=== PATIENT | female | born 1965 | race Caucasian/White ===

== ENCOUNTER → 2017-10-27 15:51 | Outpatient (CLI) | payer OTHER, SELFPAY | PROVIDERS: Visit Provider Otolaryngology Otolaryngology/Facial Plastic Surgery | DX: J34.89 Other specified disorders of nose and nasal sinuses (principal) | CPT/HCPCS: 87070; 87077; 87186; 87205 ==

== ENCOUNTER → 2020-02-26 12:34 | Outpatient (CLI) | payer OTHER, SELFPAY ==
[2013-12-31 20:43] VITALS: BMI 38.4
--- NOTE | 2020-02-26 12:56 | CT_ITS ---
STUDY: CT SCAN LOWER EXTREMITY LEFT REASON FOR EXAM: Female, 55 years old. [facility] PROTOCOL RADIATION DOSAGE (If Supplied By Facility): CTDIvol = ( 18.76 ) mGy, DLP = ( 1216.75 ) mGycm. Individualized dose optimization techniques were used for this CT.? TECHNIQUE: Multiple axial tomographic images of the left hip and left knee joints were obtained. Sagittal and coronal reconstruction was obtained as well. COMPARISON: None. FINDINGS: Degenerative changes and sclerosis of the symphysis pubis. The hip joint is unremarkable. The joint space is well maintained. There is a marked degree of the joint space narrowing involving the medial compartment of the knee joint with evidence of degenerative spur formation. There is evidence of chondrocalcinosis of the lateral meniscus. A screw fixation device is seen along the lateral metaphysis of the distal femur. Mild degree of joint space narrowing involving the patellofemoral joint. There is a 7.2 mm cyst in the subchondral region of the intercondylar eminence of the proximal tibia. CT/Extremity Lower without Contra IMPRESSION: Marked degree of joint space narrowing involving the medial compartment of the knee joint with degenerative spur formation. Chondrocalcinosis of the lateral meniscus. Mild degree of the joint space narrowing of the patellofemoral joint. Prior screw placement along the lateral aspect of the distal femoral metaphysis. Electronically Signed: Louie Hager, at 15:03 EDT , Service support ,
== END ==
PROVIDERS: PCP Family Medicine; Referring Provider Physician Assistant Surgical; Visit Provider Physician Assistant Surgical
DX: M21.162 Varus deformity, not elsewhere classified, left knee (principal)
CPT/HCPCS: 36415; 73700; 80048; 85025; 87081; 93005

== ENCOUNTER 2020-03-20 05:24 | Day surgery (SDC) | payer OTHER, SELFPAY ==
[2013-12-31 20:43] VITALS: BMI 38.4
--- NOTE | 2020-02-26 12:58 | EKG12_ITS ---
Test Reason : PRE-OP Blood Pressure : / mmHG Vent. Rate : 086 BPM Atrial Rate : 086 BPM P-R Int : 170 ms QRS Dur : 082 ms QT Int : 364 ms P-R-T Axes : 048 013 042 degrees QTc Int : 435 ms Normal sinus rhythm Low Vatage QRS Confirmed by KATELIN GARY, CLAYTON ([id number]), metropolitan editor NICOLA CHAO ([id number]) on 02/28/2020 11:03:21 AM Referred By: Dany Miller Confirmed By:CLAYTON THOMASON MD
[2020-02-26 13:55] LABS: Absolute Lymphocyte Count 2.06 X10^3/uL (0.83-4.51); Absolute Neutrophil Count 5.5 X10^3/uL (2.0-7.7); Basophil# 0.04 X10^3/uL; Basophil% 0.5 % (0-1); Eosinophil# 0.29 X10^3/uL; Eosinophils% 3.5 % (0-5); Hematocrit 40.8 % (37-47); Hemoglobin 13.5 g/dL (12.0-15.0); Lymphocyte # 2.06 X10^3/ul (4.0); Lymphocyte % 24.7 % (19-41); Mean Corp Hgb Conc 33.1 g/dL (32-36); Mean Corpuscular Hgb 28.6 pg (27.0-32.0); Mean Corpuscular Volume 86.4 fL (81-99); Mean Platelet Vol. 10.6 fl (6.2-12.0); Monocyte# 0.37 X10^3/uL; Monocyte% 4.4 % (0-10); NRBC Flagged by Analyzer 0 % (0-5); Neutrophil # 5.54 X10^3/uL (2.7-7.7); Neutrophil % 66.5 % (47-70); Platelet Count 288 K/mm3 (150-450); RBC Distribution Width CV 11.9 % (11.6-14.6); RBC Distribution Width SD 37.1 fl (35.1-43.9); Red Blood Count 4.72 M/mm3 (4.2-5.4); White Blood Count 8.3 K/mm3 (4.4-11.0)
[2020-02-26 14:23] LABS: Anion Gap 5 (5-15); BUN 19 mg/dL (7-18); BUN/Creat Ratio 20.4 RATIO (10-20); Calcium,Total 9.4 mg/dL (8.5-10.1); Chloride 104 mmol/L (98-107); Creatinine, Serum 0.93 mg/dL (0.55-1.02); EST Glomerular Filtration Rate 67 mL/min (>60); Est Glom Filt Rate - Afr Amer 81 mL/min (>60); Glucose 98 mg/dL (74-106); Potassium 3.7 mmol/L (3.5-5.1); Sodium Level 141 mmol/L (136-145)
--- NOTE | 2020-02-28 15:30 | PCM.HP.BLA ---
History and Physical History and Physical [facility] Patient Name: Danielle Mcmillan : 1965 From: TAMIKO MEJIA PA-C DATE OF SURGERY: 03/20/2020 SCHEDULED PROCEDURE: left total knee arthroplasty HISTORY OF PRESENT ILLNESS: Preoperative history and physical exam was performed on February 26, 2020. This is a 55-year-old female who has had ongoing pain for several years. Patient has seen a previous orthopedic surgeon who did recommend a left total knee arthroplasty. Patient wanted to stay closer to home and would like Dr. Dany Miller to proceed with the total knee replacement. Patient has previous surgeries of the left and right knee. Patient had a previous right knee arthroscopy for meniscectomy in 2013 by an outside orthopedic surgeon. She has also had left knee arthroscopy in 2009. She has had previous ACL reconstruction on the left knee in 1983 and 1980. She has been treated over the past 10 years with Euflexxa injections every 6 months. She was given these by Dr. Buster Angel. Her last Euflexxa injection on December 15, 2019 in bilateral knees. The last 2 series of injections have not provided relief as before. She has had a recent injury walking down a hill with her left knee locking up and she had to shift her weight to the right knee. Her right knee buckled. Her left knee is much worse than the right knee. Her pain can reach 7/10 with activities. Patient has fallen and tripped/stump due to her knee pain. Patient currently denies any recent fevers, chills, recent infections. There is been no chest pain or shortness of breath. She has medical history pertinent for acid reflux. We are obtaining surgical clearance from the primary care physician Dr. Rivers. After failing conservative measures and discussing treatment options with Dr. Dany Miller, the patient does wish to proceed with a left total knee arthroplasty. REVIEW OF SYSTEMS: ROS: Const: Denies anorexia, anxiety, change in appetite, fever and weight change,hard of hearing, and vision problems. CV: Denies chest pain, heart murmur, irregular heartbeat and peripheral vascular disease. Resp: Reports sleep apnea, but denies asthma, cough, pneumonia, shortness of breath, tuberculosis and wheezing. GI: Reports heartburn, but denies constipation, diarrhea, nausea, bloody stools and vomiting, and difficulty swallowing. : Denies incontinence. Musculo: Denies leg swelling, trouble walking and weakness and limp. Skin: Reports tattoo, but denies Raynaud's and history of shingles. Neuro: Reports numbness/tingling but denies ambulatory dysfunction, dizziness and tremor. Psych: Reports stress, but denies anxiety, depression, insomnia and mental illness. Finesse/Lymph: Reports bleeding/bruising tendency, but denies anemia and past transfusion. Reviewed, no changes. PAST MEDICAL HISTORY: Advance Care Plan: No Advance Directives Effective Date: 02/16/2020 PMH: Medical Problems: Acid Reflux, Kidney Stones Accidents: None Surgical Hx: ACL Total Reconstruction Left - 1983 1990 BLT Breast Reduction - 1996 Knee Arthroscopy LT - (2009) Knee Arthroscopy RT - (2013) Carpal Tunnel Release LT - (2010) Carpal Tunnel Release RT - (2010) Anesthesia Complications: Vomiting Assistive Devices: Brace, Glasses Reviewed and updated. SOCIAL HISTORY: SH: Marital: Single.Occupation: [employer] Status: Currently Working.Hand Dominance: Right-handed. Personal Habits: Cigarette Use: Former.Smokeless Tobacco: Never Used Smokeless Tobacco.E-Cigarette Use: Never used.Alcohol: Occasionally.Drug Use: Denies Use.Enjoy Exercising: Never Exercises. Reviewed and updated. VITALS: Ht: 62 Wt: 214lb Wt k.070 BMI: 39.1 BP: 130/90 Pulse: 79 Resp: 16 T: 95.8 T: 35.4C ALLERGIES: Azithromycin Amoxicillin MEDICATIONS: Oxycodone HCL 5 mg 1-2 tab by mouth every 4 hours, Meloxicam 7.5 mg 1 by mouth twice a day, Promethazine HCL 12.5 mg 1-2 tablets by mouth every 6 hours, Nexium 40 mg 1 cap PO daily PRE-OP EXAM: General appearance:NORMAL Other: Eyes: Conjunctivae and lids: NORMAL Pupils: ERR Ears, Nose, Mouth, and Throat: NORMAL Other: Inspection of lips, teeth and gums: NORMAL Other: Neck: Examination of neck: no masses noted. Respiratory: Assessment of respiratory effort: NORMAL Other: Auscultation of lungs: clear to auscultation no wheezes, rhonchi or rales. Cardiovascular: Auscultation of heart: regular rate and rhythm, no murmurs, gallops or rubs. Exam of carotid arteries: NORMAL Other: Gastrointestinal: Exam of abdomen: soft, nontender, nondistended bowel sounds present. PHYSICAL EXAMINATION: Patient does walk with an antalgic gait. Left knee is cool to touch without erythema or signs of infection. Patient does have varus alignment which is correctable. Previous incisions are well healed. Range of motion: Lacks 40 of full extension to 120 flexion. Firm endpoint on anterior and posterior drawer testing. Sensation intact to light touch. IMAGING STUDIES: Previous left knee x-rays reveal evidence of ACL reconstruction with joint space narrowing, subchondral sclerosis, bony erosions, osteophyte formation consistent with severe tricompartmental osteoarthritis IMPRESSION: 1. Severe tricompartmental left knee osteoarthritis 2. Right knee osteoarthritis 3. History kidney stones 4. Gastroesophageal reflux disease PLAN: Dr. Dany Miller did discuss and review with the patient all treatment options including surgical versus nonsurgical options. Patient does wish to proceed with the above-stated procedure. Potential risks, benefits, and complications of the procedure were discussed in detail including but not limited to , infection, nerve and blood vessel damage, persistent pain, numbness, tingling, paresthesias, blood clot, pulmonary embolism, and requirement for possible further surgery. The patient expressed full understanding and has no further questions for the doctor. Patient does agree to proceed with the above-stated procedure and has signed the surgery consent form. We discussed the current risks associated with COVID 19. This does include the risk of exposure while in the hospital. Patient was reassured local hospitals have low infection rates and are taking all necessary precautions to avoid exposure to patients. In addition, we discussed strategies that can be used to help limit exposure including those that limit the patient's time in the hospital. Also using strategies to limit the patient's need for continued inpatient services after being discharged from the hospital. Patient was notified that we will need to comply with any screening or testing the hospital wishes to perform or that surgery may be delayed for any positive results. This dictation was created using voice recognition software. Phonetic and/or grammatical errors may exist. ___ I have re-examined the patient. There are no clinical changes since date of exam. ___ See progress notes for changes. ___ Dictated on admission Date: Time:
[2020-03-20] VITALS (11 sets, daily range): BP systolic 120–152; BP diastolic 58–89; PULSE 61–95; RESP 14–16; TEMP 36.3–37; O2SAT 95–100; BMI 39.4
[2020-03-20] MEDS: Lactated Ringers 1,000 ML 999 ML IV ×2 (06:08→10:34)
[2020-03-20] MEDS: Scopolamine 1mg/72hr Patch 1 PATCH TRANSDERM. (06:09)
[2020-03-20] MEDS: Gabapentin 600 MG Tablet PO (06:09)
[2020-03-20] MEDS: Acetaminophen 500 MG Tablet 1000 MG PO (06:09)
[2020-03-20 06:20] LABS: Magnesium 2.3 mg/dL (1.6-2.6)
[2020-03-20 06:30] LABS: Bedside Glucose 157 mg/dL (70-110)
[2020-03-20] MEDS: Lactated Ringers 1,000 ML 75 ML IV (07:00)
--- NOTE | 2020-03-20 07:11 | RAD_ITS ---
STUDY: X-RAY - LEFT KNEE REASON FOR EXAM: Female, 55 years old. TOTAL KNEE REPLACEMENT POST OP TECHNIQUE: AP and lateral view(s) of the knee. COMPARISON: None. FINDINGS: Normal visualized distal femur. Normal visualized proximal tibia and fibula. Normal proximal tibiofibular articulation. The patient is status post total knee replacement. There is good alignment. Postoperative soft tissue changes. RAD/Knee 1 or 2 Views IMPRESSION: Status post total knee replacement. There is good alignment. Postoperative soft tissue changes. Electronically Signed: Louie Hager, at 10:19 EDT , Service support ,
[2020-03-20] MEDS: Cefazolin 2 GM in 0.9% Normal Saline 100 ML IV (07:17)
[2020-03-20] MEDS: dexAMETHasone 10 MG/ML Vial IV (07:47)
--- NOTE | 2020-03-20 08:57 | OP.PCM_ITS ---
Report of Operation Date of Procedure: 03/20/20 Pre-Operative Diagnosis: Left knee posttraumatic osteoarthritis Post-Operative Diagnosis: Left knee posttraumatic osteoarthritis Surgery/Procedure Performed:: Left robotic assisted minimally invasive total knee replacement Description of Surgical Findings:: Stable knee with good patella tracking configuration management architect: Aida Stockton Type of Anesthesia:: Spinal Anesthesiologist: Mio Cohen Special Medications: 2 g Ancef, 1 g TXA at incision, 1 g TXA closure, 10 mg Decadron, joint cocktail (5 mg Duramorph, 30 mL of 0.5% Ropivicaine, 1000 units of epinephrine, 30 mg of Toradol) Specimen's removed: Bony cuts Estimated Blood Loss (mL): 30 Fluids Replaced: 700 mL crystalloid Description of Procedure: Implants used: 1. Tj size 4 triathlon cruciate retaining distal femoral press-fit component 2. Celina size 4 press-fit tritanium tibial baseplate 3. Celina X3 10 mm CS polyethylene 4. Celina X3 35 mm asymmetric patella Brief history operative indications: 55-year-old F with history of left knee osteoarthritis with radiographic findings with loss of joint space, osteophyte formation and subchondral sclerosis. Failed conservative measures as mentioned in the H&P. Discussion of total knee arthroplasty as well as risk and benefits were discussed the patient including but not limited to blood loss, DVTs, PEs, neurovascular damage, general risk of anesthesia including loss of life, and stiffness or instability were discussed with patient. Patient demonstrated understanding and was able to sign informed consent. Procedure: On the date of procedure patient's left lower extremity was marked in the preoperative area. The patient was then taken back to the operating room where the patient was placed on the table in the supine position. All bony prominences were identified a well-padded. Anesthesia assumed control of the C-spine and airway and remained controlled throughout the remainder of the procedure. A tourniquet was placed on the left upper thigh and the leg was prepped in a sterile fashion. The surgeon then scrubbed at this time .Upon reentering the room left lower extremity was draped in a standard orthopedic fashion. A timeout was then called and everyone agreed upon the side, the site, the procedure to be performed, patient's identity and antibiotics given. Esmarch bandage was used to exsanguinate the extremity and the tourniquet was placed up to 250 mmHg with the knee in flexion. A midline skin incision was made and sharp dissection was taken down through skin subcutaneous tissue and fat. The standard medial parapatellar incision was made and the patella was subluxed laterally. An Appropriate deep MCL release was done and the fat pad was resected. Our attention was then directed to the patella. The patella was everted and a flat resection was made. The knee was then flexed up in 2 femoral pins were placed inside the incision and 2 tibial pins were placed outside the incision in the medial tibia bicortically. Once this was completed the 2 checkpoints in the femur and tibia were placed. Knee was then flexed up and the bony landmarks were registered. Once this was completed knee was taken through range of motion and manually stressed allowing us to a plan for an appropriate tibial cut. The robotic arm was brought into the field sterilely and checkpoint and saw were registered. Based on the patient's deformity the tibial cut was made in 3 degrees varus. At this time the tensioner was then placed in the joint and ligament tension was checked at 90 degrees and full extension. Based on the patient's ligamentous tension appropriate adjustments were made to the operative plan and ligament releases were done. Once we were happy with our operative plan with balanced flexion and extension gaps our attention was directed to the femur. The robot was brought into the field sterilely and registered. Posterior condylar cuts, anterior chamfer cuts and anterior cuts were appropriately made for a size4 femur. When these were completed the saws were switched out in the distal femoral and posterior chamfer cuts were made. Protecting the soft tissue throughout this time. A size 4 tibial base plate was selected. the knee was flexed to 90 degrees and the soft tissues and posterior osteophytes were removed from the joint. 40 cc of the periarticular injection was injected into the posterior medial corner of the joint. The appropriate trials were then placed on the femur and tibia. A trial polyethylene was trialed to ensure proper balancing and stability of the knee. The appropriate tibial internal rotation was then marked with a bovie. Our attention was then directed to the patella. The lug holes were drilled and the patella trial was placed. Patellar tracking was checked and deemed appropriate. Once we were happy lug holes were drilled for the femur and trial components were removed. the tibia was subluxed and pinned into place and the keel was punched and drilled appropriately. Final components were verified and opened, and cement was mixed in a vacuum. [employer] Simplex cement was used. The wound was copiously irrigated with normal saline. When the cement was ready the components were impacted into place starting with the tibia, femur and finally cementing the patella. The trial poly component was placed and the knee was placed in full extension. All excess cement was removed in the process. Once the cement had cured the tracking, alignment and balance were verified and a size 10 mm CS polyethylene component was placed. Once the final components were placed an Irrisept lavage was performed and the wound was copiously irrigated with normal saline solution and the periarticular injection was given. The wound was closed in a layer thomas fashion using #1 vicryl interrupted sutures for the arthrotomy, 2-0 interrupted Vicryl suture for the subcuticular layer and paula for final skin closure. A sterile compressive dressing was then placed. The patient was then awakened from anesthesia, transferred to the [place] and transferred to the PACU for recovery. Post op plan DVT ppx: ASA 81mg BID, thigh high compression stockings Follow up: in office in 2 weeks for wound check PT: to start POD #0 at hospital, outpatient PT should be arranged. My physician urology physician assistant was a vital part of this case. He was important in appropriate retraction during the case, and protection of soft tissues during bony cuts. His intimate knowledge of the case and my steps aided in safe and expedient completion of the procedure as well as appropriate position of the leg during the case. He was also vital in assisting with closure under my direct supervision. Due to the complexity of this case robotic arm was used to assist in the surgery to improve accuracy and clinical outcomes. - Complications No intraoperative complications - Admit VTE Documentation VTE Present on Admission: No VTE Mechan Device Prophylaxis: SCD's, Thigh High LEILA Hose VTE Pharm Prophylaxis ordered?: Yes
[2020-03-20] MEDS: oxyCODONE 5 MG Tablet PO (11:22)
[2020-03-20] MEDS: Cefazolin 1 GM/50 ML BAG IV (12:48)
== END 2020-03-20 13:30 | disposition home or self-care (01) ==
LOC: SDC 05:25 → AC 05:26
PROVIDERS: Anesthesiology; Physician Assistant Surgical; PCP Family Medicine; Referring Provider Specialist; Visit Provider Specialist
PROC: 0SRD0JZ Replacement of Left Knee Joint with Synthetic Substitute, Open Approach (ICD-10-PCS; CPT 27447; principal; 2020-03-20 07:00)
DX: M17.32 Unilateral post-traumatic osteoarthritis, left knee (principal); K21.9 Gastro-esophageal reflux disease without esophagitis; Z79.1 Long term (current) use of non-steroidal anti-inflammatories (NSAID); Z79.899 Other long term (current) drug therapy; Z87.442 Personal history of urinary calculi
CPT/HCPCS: 27447; 73560; 82962; 83735; 87635; 94799; 97162; 97166; C1776; J7120; U0003